=== PATIENT | male | born 1930 | race Caucasian/White ===

== ENCOUNTER → 2019-04-04 | Outpatient (CLI) | payer MEDICARE ==
[~2019-04-04] MED LIST: APIX5TAB PO; ASCO-96 PO; ATOR10TA PO; ATOR40TA78 PO; CHOL200024 PO; FOLIC ACID PO; HYDROCHLOROTH12.5 MG PO; LORA10TA75 PO; LOSA100T14 PO; METO25TA35 PO; MULT-516 PO; OMEG1CAP23 PO; OMEP-110 PO
== END | disposition home or self-care (01) ==
LOC: CVU 09:32
PROVIDERS: ATTEND Physician Assistant Medical
DX: I73.9 Peripheral vascular disease, unspecified (principal); I77.1 Stricture of artery; I70.203 Unspecified atherosclerosis of native arteries of extremities, bilateral legs
CPT/HCPCS: 93922; 93925

== ENCOUNTER 2019-06-24 12:38 | Day surgery (SDC) | payer MEDICARE ==
[~2019-06-24] VITALS: Ht 182.9 cm; Wt 77.5 kg
[2019-06-24] MEDS ORDERED: SODIUM CHLORIDE 0.9% 1,000 ML IV SCH ×2 (12:55→18:00)
[2019-06-24 13:11] VITALS: BP 184/71
[2019-06-24 13:59] LABS: BASOPHILS # (AUTO) 0.02 x10^3/uL (0-0.1); BASOPHILS % (AUTO) 0 % (0-1); EOSINOPHILS # (AUTO) 0.08 x10^3/uL (0-0.4); EOSINOPHILS % (AUTO) 1 % (1-7); LYMPHOCYTES # (AUTO) 0.94 x10^3/uL (1-3.4); LYMPHOCYTES % (AUTO) 17 % (22-44); MD NO; MEAN CORPUSCULAR HEMOGLOBIN 32.1 pg (27.5-34.5); MEAN CORPUSCULAR HGB CONC 33.3 g/dL (33.2-36.2); MEAN CORPUSCULAR VOLUME 96.4 fL (81-97); MEAN PLATELET VOLUME 8.6 fL (7.4-10.4); MONOCYTES # (AUTO) 0.75 x10^3/uL (0.2-0.8); MONOCYTES % (AUTO) 13 % (2-9); NEUTROPHILS # (AUTO) 3.95 x10^3/uL (1.8-6.8); NEUTROPHILS % (AUTO) 69 % (42-75); PLATELET COUNT 170 x10^3/uL (130-400); RED BLOOD COUNT 4.19 x10^6/uL (4.38-5.82); RED CELL DISTRIBUTION WIDTH 14.1 % (9.4-14.8)
[2019-06-24 14:01] LABS: ANION GAP 7 mmol/L (5-15); CALCIUM 8.6 mg/dL (8.5-10.1); CHLORIDE 107 mmol/L (98-107); CREATININE 1.26 mg/dL (0.7-1.3)
[2019-06-24] MEDS ORDERED: MIDAZOLAM 1 MG/ML, 5ML ONE (15:47)
[2019-06-24] MEDS ORDERED: FENTANYL PF 100 MCG/2ML ONE (15:47)
[2019-06-24] MEDS ORDERED: HEPARIN 1,000 UNITS/ML, 10ML ONE (15:48)
[2019-06-24] MEDS ORDERED: FLUMAZENIL 0.1 MG/1 ML, 5ML ONE (15:48)
[2019-06-24] MEDS ORDERED: PROTAMINE SULFATE 10 MG/ML, 25ML ONE (15:48)
[2019-06-24] MEDS ORDERED: NALOXONE 1 MG/ML, 2ML ONE (15:48)
[2019-06-24] MEDS ORDERED: VISIPAQUE 270 MG/ML, 150ML BOTTLE ONE (16:00)
[2019-06-24] MEDS ORDERED: CEFAZOLIN PMX 1GM/50ML 100 ML ONE (16:06)
[2019-06-24] MEDS ORDERED: LIDOCAINE 1%, 10ML ONE (16:11)
[2019-06-24] MEDS ORDERED: hydrALAzine 20 MG/ML, 1ML ONE (17:16)
[2019-06-24] MEDS ORDERED: CLOPIDOGREL 300 MG TABLET ONE (17:20)
[2019-06-24] MEDS ORDERED: HYDROcodone/APAP 5/325 TABLET PO PRN (18:00)
[2019-06-24] MEDS ORDERED: morphine SULFATE 10 MG/ML, 1ML IVPush PRN (18:00)
[2019-06-24] MEDS ORDERED: ONDANSETRON 2MG/ML, 2ML IVPush PRN (18:00)
[2019-06-24] MEDS ORDERED: METOPROLOL TARTRATE 25 MG TAB PO SCH (18:00)
[2019-06-24] MEDS ORDERED: ATORVASTATIN 40 MG TABLET PO SCH (21:00)
[2019-06-25] MEDS ORDERED: OMEPRAZOLE 20 MG CAPSULE.DR PO SCH (06:00)
[2019-06-25] MEDS ORDERED: ASCORBIC ACID 500 MG TABLET PO SCH (09:00)
[2019-06-25] MEDS ORDERED: HYDROCHLOROTHIAZIDE 12.5 MG CAPSULE PO SCH (09:00)
[2019-06-25] MEDS ORDERED: LOSARTAN 100 MG TAB PO SCH (09:00)
[2019-06-25] MEDS ORDERED: OMEGA-3/FISH OIL CAPSULE PO SCH (09:00)
[2019-06-25] MEDS ORDERED: MULTIVITAMIN 1 TABLET PO SCH (09:00)
[2019-06-26] MEDS ORDERED: CHOLECALCIFEROL 1,000 UNIT TABLET PO SCH (09:00)
[2019-06-26] MEDS ORDERED: APIXABAN 5 MG TABLET PO SCH (21:00)
== END 2019-06-24 21:00 | disposition home or self-care (01) ==
LOC: OUT 12:38 → 4NE 17:39 → OUT 21:00
PROVIDERS: ATTEND Surgery
DX: I70.213 Atherosclerosis of native arteries of extremities with intermittent claudication, bilateral legs (principal); I70.0 Atherosclerosis of aorta; I12.9 Hypertensive chronic kidney disease with stage 1 through stage 4 chronic kidney disease, or unspecified chronic kidney disease; N18.2 Chronic kidney disease, stage 2 (mild); I48.91 Unspecified atrial fibrillation; E78.5 Hyperlipidemia, unspecified; Z79.01 Long term (current) use of anticoagulants; Z87.891 Personal history of nicotine dependence; Z82.49 Family history of ischemic heart disease and other diseases of the circulatory system
CPT/HCPCS: 36415; 37224; 75625; 75716; 76937; 80048; 85025; 99156; 99157; C1751; C1769; C1894; C2623; J0360; J0690; J1644; J2250; J2720; J3010; Q9966; 75630; G0378; J2310

== ENCOUNTER → 2019-07-03 | Outpatient (CLI) | payer MEDICARE | END | disposition home or self-care (01) | LOC: CVU 15:26 | PROVIDERS: ATTEND Surgery | DX: I65.23 Occlusion and stenosis of bilateral carotid arteries (principal); I65.03 Occlusion and stenosis of bilateral vertebral arteries; I10 Essential (primary) hypertension; E78.5 Hyperlipidemia, unspecified; I48.91 Unspecified atrial fibrillation; R09.89 Other specified symptoms and signs involving the circulatory and respiratory systems | CPT/HCPCS: 93880 ==